=== PATIENT | male | born 1950 | race Two or more races ===

== ENCOUNTER 2023-02-17 12:59 | Emergency (ER) | payer OTHER ==
[~2023-02-17] VITALS: Ht 162.6 cm; Wt 63.0 kg
== END 2023-02-17 15:37 | disposition home or self-care (01) ==
LOC: ER 12:59
DX: S42.292A Other displaced fracture of upper end of left humerus, initial encounter for closed fracture (principal); W10.8XXA Fall (on) (from) other stairs and steps, initial encounter; Y93.89 Activity, other specified; Y92.89 Other specified places as the place of occurrence of the external cause; Y99.9 Unspecified external cause status; I10 Essential (primary) hypertension; J44.9 Chronic obstructive pulmonary disease, unspecified

== ENCOUNTER 2024-08-20 20:40 | Emergency (ER) | payer OTHER ==
[~2024-08-20] VITALS: Ht 162.6 cm; Wt 61.2 kg
[2024-08-20] MEDS ORDERED: LOSARTAN POTASS50 MG PO (21:02)
[2024-08-20] MEDS ORDERED: LOPERAMIDE2 M1 PO (21:03)
[2024-08-20] MEDS ORDERED: ZOCOR20 MG PO (21:03)
[2024-08-20] MEDS ORDERED: ONDANSETRON HCL 2 MG/ML VIAL IV ONE (22:15)
[2024-08-20] MEDS ORDERED: FAMOTIDINE/PF 20 MG/2 ML VIAL IV ONE (22:15)
[2024-08-20 23:12] LABS: HEMATOCRIT 38.5 % (39.0-48.0); HEMOGLOBIN 13.6 g/dL (13-16.00); MEAN CELL VOLUME 87.9 fL (80.0-100.00); MEAN CORPUSCULAR HGB CONC 35.2 g/dl (32.0-36.0); PLATELET COUNT 177 K/uL (150-450); RED BLOOD COUNT 4.38 M/uL (4.00-6.00); RED CELL DISTRIBUTION WIDTH 13.5 % (11.5-14.5)
[2024-08-20 23:34] LABS: INR 1.08; PARTIAL THROMBOPLASTIN TIME 29.4 SECONDS (22.0-34.0); PROTHROMBIN TIME 11.7 SECONDS (9.0-11.5)
[2024-08-20 23:39] LABS: CALCIUM 9.3 mg/dL (8.5-10.1); CREATININE SERUM 1.02 mg/dL (0.70-1.30); GFR 71.2; POTASSIUM 3.68 mEq/L (3.5-5.1)
== END 2024-08-21 03:34 | disposition home or self-care (01) ==
LOC: ER 20:42
PROVIDERS: Emergency Medicine
DX: R13.10 Dysphagia, unspecified (principal); Z88.1 Allergy status to other antibiotic agents